=== PATIENT | female | born 1990 | race Hispanic/Latino ===

== ENCOUNTER 2018-07-28 07:16 | Observation (INO) | payer BC ==
[2018-07-28 07:24] VITALS: BMI 25.0
--- NOTE | 2018-07-28 07:47 | ED PDOC ---
HPI: Chest Pain Time Seen by Provider: 07/28/18 07:27 Chief Complaint (Nursing): Anxiety Chief Complaint (Provider): Chest Pain History Per: Patient History/Exam Limitations: no limitations Onset/Duration Of Symptoms: Hrs (x1) Current Symptoms Are (Timing): Still Present Context: Other (Cocaine use) Quality: "Pain" Additional Complaint(s): 27 year old female with no significant past medical history presents to the ED with chest pain for an hour. Patient states she used cocaine when symptoms developing. She feels anxious at present, but denies any shortness of breath. Patient admits that this isnt her first time using cocaine. PMD: none provided. Past Medical History Reviewed: Historical Data, Nursing Documentation, Vital Signs Vital Signs: Last Vital Signs Temp 98.7 F 07/28/18 07:24 Pulse 110 H 07/28/18 07:24 Resp 17 07/28/18 07:24 BP 131/76 07/28/18 07:24 Pulse Ox 96 07/28/18 07:24 - Medical History PMH: Depression - Surgical History Surgical History: No Surg Hx - Family History Family History: States: Unknown Family Hx - Social History Current smoker - smoking cessation education provided: No Ex-Smoker (has not smoked in the last 12 months): No Alcohol: Social Drugs: Cocaine - Home Medications Home Medications: Ambulatory Orders Medication Instructions Recorded No Known Home Med 07/28/18 - Allergies Allergies/Adverse Reactions: Allergies Allergy/AdvReac Type Severity Reaction Status Date / Time No Known Allergies Allergy Verified 09/20/16 04:54 Review of Systems ROS Statement: Except As Marked, All Systems Reviewed And Found Negative Cardiovascular: Positive for: Chest Pain Respiratory: Negative for: Shortness of Breath Physical Exam - Reviewed Nursing Documentation Reviewed: Yes Vital Signs Reviewed: Yes - Physical Exam Appears: Positive for: No Acute Distress Head Exam: Positive for: ATRAUMATIC, NORMOCEPHALIC Skin: Positive for: Normal Color, Warm, Dry Eye Exam: Positive for: Normal appearance, EOMI, PERRL Cardiovascular/Chest: Positive for: Tachycardia, Other (regular rhythm) Respiratory: Positive for: Normal Breath Sounds. Negative for: Respiratory Distress Neurologic/Psych: Positive for: Alert, Oriented (x3) - Laboratory Results Result Diagrams: 07/28/18 08:30 07/28/18 08:30 - ECG Interpretation Of ECG: ST @ 105, nonspecific ST and T wave abnormality. O2 Sat by Pulse Oximetry: 96 (RA) Pulse Ox Interpretation: Normal Medical Decision Making Medical Decision Making: Time: 742 Initial Impression: Cocaine, chest pain Initial Plan: --EKG --Alcohol serum --Drug screen --Troponin --Urine preg --Urine dip --CBC with differentials --PTT --Prothrombin time --CXR --Ativan 2 mg IVP --UA Accession No. : [id number] Patient Name / ID : ELAINE VALLEJO / [id number] Exam Date : 07/28/2018 08:18:29 ( Approved ) Study Comment : Sex / Age : F / 27Y Creator : Louis Hoover MD Dictator : Louis Hoover MD Test Manager : Industrial Pipefitter Journeyman : Louis Hoover MD Approver2 : Report Date : 07/28/2018 09:00:26 My Comment : Date of service: 07/28/2018 HISTORY: CP COMPARISON: No prior. FINDINGS: LUNGS: No active pulmonary disease. PLEURA: No significant pleural effusion identified, no pneumothorax apparent. CARDIOVASCULAR: No aortic atherosclerotic calcification present. Normal cardiac size. No pulmonary vascular congestion. OSSEOUS STRUCTURES: No significant abnormalities. VISUALIZED UPPER ABDOMEN: Normal. OTHER FINDINGS: None. IMPRESSION: No active disease. Scribe Attestation: Documented by Marzena Loo, acting as a scribe for Evy Saenz MD Provider Scribe Attestation: All medical record entries made by the Scribe were at my direction and personally dictated by me. I have reviewed the chart and agree that the record accurately reflects my personal performance of the history, physical exam, medical decision making, and the department course for this patient. I have also personally directed, reviewed, and agree with the discharge instructions and di sposition. Disposition - Clinical Impression Clinical Impression: Acute chest pain, Cocaine abuse - Patient ED Disposition Is Patient to be Admitted: Yes - Disposition Disposition Time: 09:28 Condition: STABLE Forms: [employer] (Iraqi) - Pt Status Changed To: Hospital Disposition Of: Observation - POA Present On Arrival: None
[2018-07-28 08:37] LABS: BASO # 0.1 K/uL (0.0-0.2); BASO % 1.2 % (0.0-2.0); EOS % 0.3 % (0.0-4.0); HEMOGLOBIN 13.3 g/dL (12.0-16.0); LYMPH # 1.2 K/uL (1.0-4.3); LYMPH % 23.3 % (20.0-40.0); MEAN CELL VOLUME 93.6 fl (81.0-99.0); MEAN CORPUSCULAR HGB CONC 34.3 g/dL (33.0-37.0); MEAN PLATELET VOLUME 8.3 fl (7.2-11.7); MONO # 0.2 K/uL (0.0-0.8); MONO % 4.4 % (0.0-10.0); NEUT # 3.5 K/uL (1.8-7.0); NEUT % 70.8 % (50.0-75.0); NRBC % 0.1 % (0.0-0.0); RBC 4.14 Mil/uL (3.80-5.20); RED CELL DISTRIBUTION WIDTH 12.6 % (11.5-14.5)
[2018-07-28 08:49] LABS: ALB/GLOB RATIO 1.4 (1.0-2.1); ALBUMIN 4.3 g/dL (3.5-5.0); ALT/SGPT 45 U/L (9-52); AST/SGOT 34 U/L (14-36); BLOOD UREA NITROGEN 8 mg/dl (7-17); CALCIUM 9.4 mg/dL (8.4-10.2); GFR NON-AFRICAN AMERICAN > 60
[2018-07-28 08:58] LABS: SQUAMOUS EPITHIAL 5 /hpf (0-5); URINE BACTERIA RARE (<OCC); URINE BILIRUBIN NEGATIVE (NEGATIVE); URINE BLOOD NEGATIVE (NEGATIVE); URINE CLARITY SLIGHTY-CLOUDY (Clear); URINE COLOR STRAW (YELLOW); URINE GLUCOSE (UA) NEG (NEGATIVE); URINE LEUKOCYTE ESTERASE TRACE Leu/uL (Negative); URINE PROTEIN NEGATIVE (NEGATIVE); URINE UROBILINOGEN 0.2-1.0 mg/dL (0.2-1.0)
[2018-07-28 08:59] LABS: PARTIAL THROMBOPLASTIN TIME 32.7 Seconds (25.6-37.1)
--- NOTE | 2018-07-28 09:03 | RAD ---
Date of service: 07/28/2018 HISTORY: CP COMPARISON: No prior. FINDINGS: LUNGS: No active pulmonary disease. PLEURA: No significant pleural effusion identified, no pneumothorax apparent. CARDIOVASCULAR: No aortic atherosclerotic calcification present. Normal cardiac size. No pulmonary vascular congestion. OSSEOUS STRUCTURES: No significant abnormalities. VISUALIZED UPPER ABDOMEN: Normal. OTHER FINDINGS: None. IMPRESSION: No active disease.
[2018-07-28 09:12] LABS: BARBITURATES, UR NEGATIVE (NEGATIVE); BENZODIAZEPINES, UR NEGATIVE (NEGATIVE); OPIATES, UR NEGATIVE (NEGATIVE); PHENCYCLIDINE, UR NEGATIVE (NEGATIVE)
[2018-07-28 09:13] LABS: INR 1.1; PROTHROMBIN TIME 12.9 Seconds (9.8-13.1)
[2018-07-28 12:45] VITALS: BP 99/62; PULSE 75; RESP 20; TEMP 98.2; O2SAT 99
--- NOTE | 2018-07-28 15:38 | CP.PCM.HP ---
History of Present Illness - History of Present Illness History of Present Illness: CC: Chest Pain History of Present Illness: A 27 year old female with history of Depression on Prozac, and On OCP presents to the ED with Left sided chest pain, acute onset, intermittent after patient used Cocaine which lasted an hour. She feels was anxious at presentation but calm now. Denies any shortness of breath, diaphoresis, lightheadedness or N/V. Patient admits that this isnt her first time using cocaine. +PULIDO earlier which got resolved after Tylenol use. Present on Admission - Present on Admission Any Indicators Present on Admission: No Review of Systems - Review of Systems All systems: reviewed and no additional remarkable complaints except Past Patient History - Past Medical History & Family History Past Medical History?: Yes Past Family History: Reviewed and not pertinent - Past Social History Smoking Status: Never Smoked Alcohol: Social Drugs: Cocaine - PSYCHIATRIC Hx Depression: Yes Meds Allergies/Adverse Reactions: Allergies Allergy/AdvReac Type Severity Reaction Status Date / Time No Known Allergies Allergy Verified 09/20/16 04:54 Physical Exam - Constitutional Appears: Well, No Acute Distress - Head Exam Head Exam: ATRAUMATIC, NORMAL INSPECTION, NORMOCEPHALIC - Eye Exam Eye Exam: EOMI, Normal appearance, PERRL Pupil Exam: NORMAL ACCOMODATION, PERRL - ENT Exam ENT Exam: Mucous Membranes Moist, Normal Exam - Neck Exam Neck exam: Positive for: Normal Inspection - Respiratory Exam Respiratory Exam: Clear to Auscultation Bilateral, NORMAL BREATHING PATTERN - Cardiovascular Exam Cardiovascular Exam: REGULAR RHYTHM, +S1, +S2 - GI/Abdominal Exam GI & Abdominal Exam: Normal Bowel Sounds, Soft. absent: Tenderness - Extremities Exam Extremities exam: Positive for: full ROM, normal capillary refill, normal inspection - Back Exam Back exam: NORMAL INSPECTION - Neurological Exam Neurological exam: Alert, CN II-XII Intact, Normal Gait, Oriented x3, Reflexes Normal - Psychiatric Exam Psychiatric exam: Normal Affect, Normal Mood - Skin Skin Exam: Dry, Intact, Normal Color, Warm Results - Vital Signs Recent Vital Signs: Last Vital Signs Temp 98.2 F 07/28/18 12:45 Pulse 75 07/28/18 12:45 Resp 20 07/28/18 12:45 BP 99/62 L 07/28/18 12:45 Pulse Ox 99 07/28/18 12:45 - Labs Result Diagrams: 07/28/18 08:30 07/28/18 08:30 Labs: Laboratory Results - last 24 hr 07/28/18 07/28/18 07/28/18 08:30 08:30 08:30 WBC 5.0 D RBC 4.14 Hgb 13.3 Hct 38.7 MCV 93.6 MCH 32.0 H MCHC 34.3 RDW 12.6 Plt Count 228 MPV 8.3 Neut % (Auto) 70.8 Lymph % (Auto) 23.3 [place] % (Auto) 4.4 Eos % (Auto) 0.3 Baso % (Auto) 1.2 Neut # (Auto) 3.5 Lymph # (Auto) 1.2 [place] # (Auto) 0.2 Eos # (Auto) 0.0 Baso # (Auto) 0.1 PT 12.9 INR 1.1 APTT 32.7 Sodium 142 Potassium 3.8 Chloride 107 Carbon Dioxide 23 Anion Gap 16 BUN 8 Creatinine 0.7 Est GFR ( Amer) > 60 Est GFR (Non-Af Amer) > 60 Random Glucose 98 Calcium 9.4 Total Bilirubin 0.3 AST 34 ALT 45 Alkaline Phosphatase 76 Troponin I < 0.0120 Total Protein 7.3 Albumin 4.3 Globulin 3.0 Albumin/Globulin Ratio 1.4 Urine Color Urine Clarity Urine pH Ur Specific [place] Urine Protein Urine Glucose (UA) Urine Ketones Urine Blood Urine Nitrate Urine Bilirubin Urine Urobilinogen Ur Leukocyte Esterase Urine RBC (Auto) Urine Microscopic WBC Ur Squamous Epith Cells Urine Bacteria Urine Opiates Screen Urine Methadone Screen Ur Barbiturates Screen Ur Phencyclidine Scrn Ur Amphetamines Screen U Benzodiazepines Scrn U Oth Cocaine Metabols U Cannabinoids Screen Alcohol, Quantitative 86 H 07/28/18 07/28/18 08:40 08:40 WBC RBC Hgb Hct MCV MCH MCHC RDW Plt Count MPV Neut % (Auto) Lymph % (Auto) [place] % (Auto) Eos % (Auto) Baso % (Auto) Neut # (Auto) Lymph # (Auto) [place] # (Auto) Eos # (Auto) Baso # (Auto) PT INR APTT Sodium Potassium Chloride Carbon Dioxide Anion Gap BUN Creatinine Est GFR ( Amer) Est GFR (Non-Af Amer) Random Glucose Calcium Total Bilirubin AST ALT Alkaline Phosphatase Troponin I Total Protein Albumin Globulin Albumin/Globulin Ratio Urine Color Straw Urine Clarity Slighty-cloudy Urine pH 8.0 Ur Specific [place] 1.006 Urine Protein Negative Urine Glucose (UA) Neg Urine Ketones Negative Urine Blood Negative Urine Nitrate Negative Urine Bilirubin Negative Urine Urobilinogen 0.2-1.0 Ur Leukocyte Esterase Trace Urine RBC (Auto) < 1 Urine Microscopic WBC 11 H Ur Squamous Epith Cells 5 Urine Bacteria Rare Urine Opiates Screen Negative Urine Methadone Screen Negative Ur Barbiturates Screen Negative Ur Phencyclidine Scrn Negative Ur Amphetamines Screen Negative U Benzodiazepines Scrn Negative U Oth Cocaine Metabols Positive H U Cannabinoids Screen Negative Alcohol, Quantitative - EKG Data EKG Interpreted by: Myself - Impressions Impression: Non-specific ST-T changes. - Imaging and Cardiology Chest x-ray Status: Report reviewed by me Additional comment: No Active Disease Assessment & Plan (1) Acute chest pain Assessment and Plan: R/O ACS Status: Acute Priority: High Comment: Serial trop and EKG. Nitro S/L PRN. ASA. O2 Via NC. Continuous Telemonitoring. Cardiology Consult (2) Cocaine use disorder Assessment and Plan: Counselled Status: Acute Priority: Medium (3) Depression Assessment and Plan: Continue Prozac Status: Chronic Priority: Low (4) Oral contraceptive use Assessment and Plan: Hold for now for Possible Hypercoagulable state Status: Chronic Priority: Low
--- NOTE | 2018-07-28 15:51 | CP.PCM.DIS ---
Provider - Provider Date of Admission: 07/28/18 09:30 Attending physician: Jay Jay Collier MD Consults: 07/28/18 12:10 Cardiology Consult Routine Comment: Consulting Provider: Cesar Browning Consulting Physician: Cesar Browning Reason for Consult: chest pain Time Spent in preparation of Discharge (in minutes): 15 Diagnosis - Discharge Diagnosis (1) Acute chest pain Status: Acute Priority: High (2) Cocaine use disorder Status: Acute Priority: Medium (3) Depression Status: Chronic Priority: Low (4) Oral contraceptive use Status: Chronic Priority: Low Hospital Course - Lab Results Lab Results: Most Recent Lab Values WBC 5.0 K/uL (4.8-10.8) D 07/28/18 08:30 RBC 4.14 Mil/uL (3.80-5.20) 07/28/18 08:30 Hgb 13.3 g/dL (12.0-16.0) 07/28/18 08:30 Hct 38.7 % (34.0-47.0) 07/28/18 08:30 MCV 93.6 fl (81.0-99.0) 07/28/18 08:30 MCH 32.0 pg (27.0-31.0) H 07/28/18 08:30 MCHC 34.3 g/dL (33.0-37.0) 07/28/18 08:30 RDW 12.6 % (11.5-14.5) 07/28/18 08:30 Plt Count 228 K/uL (130-400) 07/28/18 08:30 MPV 8.3 fl (7.2-11.7) 07/28/18 08:30 Neut % (Auto) 70.8 % (50.0-75.0) 07/28/18 08:30 Lymph % (Auto) 23.3 % (20.0-40.0) 07/28/18 08:30 [place] % (Auto) 4.4 % (0.0-10.0) 07/28/18 08:30 Eos % (Auto) 0.3 % (0.0-4.0) 07/28/18 08:30 Baso % (Auto) 1.2 % (0.0-2.0) 07/28/18 08:30 Neut # (Auto) 3.5 K/uL (1.8-7.0) 07/28/18 08:30 Lymph # (Auto) 1.2 K/uL (1.0-4.3) 07/28/18 08:30 [place] # (Auto) 0.2 K/uL (0.0-0.8) 07/28/18 08:30 Eos # (Auto) 0.0 K/uL (0.0-0.7) 07/28/18 08:30 Baso # (Auto) 0.1 K/uL (0.0-0.2) 07/28/18 08:30 PT 12.9 Seconds (9.8-13.1) 07/28/18 08:30 INR 1.1 07/28/18 08:30 APTT 32.7 Seconds (25.6-37.1) 07/28/18 08:30 Sodium 142 mmol/l (132-148) 07/28/18 08:30 Potassium 3.8 MMOL/L (3.6-5.0) 07/28/18 08:30 Chloride 107 mmol/L (98-107) 07/28/18 08:30 Carbon Dioxide 23 mmol/L (22-30) 07/28/18 08:30 Anion Gap 16 (10-20) 07/28/18 08:30 BUN 8 mg/dl (7-17) 07/28/18 08:30 Creatinine 0.7 mg/dl (0.7-1.2) 07/28/18 08:30 Est GFR ( Amer) > 60 07/28/18 08:30 Est GFR (Non-Af Amer) > 60 07/28/18 08:30 Random Glucose 98 mg/dL (65-105) 07/28/18 08:30 Calcium 9.4 mg/dL (8.4-10.2) 07/28/18 08:30 Total Bilirubin 0.3 mg/dl (0.2-1.3) 07/28/18 08:30 AST 34 U/L (14-36) 07/28/18 08:30 ALT 45 U/L (9-52) 07/28/18 08:30 Alkaline Phosphatase 76 U/L (38-126) 07/28/18 08:30 Troponin I < 0.0120 ng/mL (0.00-0.120) 07/28/18 08:30 Total Protein 7.3 G/DL (6.3-8.2) 07/28/18 08:30 Albumin 4.3 g/dL (3.5-5.0) 12 08:30 Globulin 3.0 gm/dL (2.2-3.9) 07/28/18 08:30 Albumin/Globulin Ratio 1.4 (1.0-2.1) 07/28/18 08:30 Urine Color Straw (YELLOW) 07/28/18 08:40 Urine Clarity Slighty-cloudy (Clear) 07/28/18 08:40 Urine pH 8.0 (5.0-8.0) 07/28/18 08:40 Ur Specific [place] 1.006 (1.003-1.030) 07/28/18 08:40 Urine Protein Negative mg/dL (NEGATIVE) 07/28/18 08:40 Urine Glucose (UA) Neg mg/dL (NEGATIVE) 07/28/18 08:40 Urine Ketones Negative mg/dL (NEGATIVE) 07/28/18 08:40 Urine Blood Negative (NEGATIVE) 07/28/18 08:40 Urine Nitrate Negative (NEGATIVE) 07/28/18 08:40 Urine Bilirubin Negative (NEGATIVE) 07/28/18 08:40 Urine Urobilinogen 0.2-1.0 mg/dL (0.2-1.0) 12 08:40 Ur Leukocyte Esterase Trace [place]/uL (Negative) 07/28/18 08:40 Urine RBC (Auto) < 1 /hpf (0-3) 07/28/18 08:40 Urine Microscopic WBC 11 /hpf (0-5) H 07/28/18 08:40 Ur Squamous Epith Cells 5 /hpf (0-5) 07/28/18 08:40 Urine Bacteria Rare (<OCC) 07/28/18 08:40 Urine Opiates Screen Negative (NEGATIVE) 07/28/18 08:40 Urine Methadone Screen Negative (NEGATIVE) 07/28/18 08:40 Ur Barbiturates Screen Negative (NEGATIVE) 07/28/18 08:40 Ur Phencyclidine Scrn Negative (NEGATIVE) 07/28/18 08:40 Ur Amphetamines Screen Negative (NEGATIVE) 07/28/18 08:40 U Benzodiazepines Scrn Negative (NEGATIVE) 07/28/18 08:40 U Oth Cocaine Metabols Positive (NEGATIVE) H 07/28/18 08:40 U Cannabinoids Screen Negative (NEGATIVE) 07/28/18 08:40 Alcohol, Quantitative 86 mg/dl (0-10) H 07/28/18 08:30 Discharge Exam - Head Exam Head Exam: ATRAUMATIC, NORMAL INSPECTION, NORMOCEPHALIC Discharge Plan - Follow Up Plan Condition: STABLE Disposition: AGAINST MEDICAL ADVICE
--- NOTE | 2018-07-28 18:26 | CARD ---
APPROVED REPORT Date of service: 07/28/2018 EKG Measurement Heart [id number] <Conclusion> Sinus tachycardia Nonspecific ST and T wave abnormality Abnormal ECG
--- NOTE | 2018-07-28 23:31 | CON ---
DATE: 07/28/2018 CARDIOLOGY CONSULTATION REASON FOR CONSULTATION: Chest pain. HISTORY OF PRESENT ILLNESS: The patient is a 27-year-old female, who has no known prior cardiac history. She abuses cocaine and presents with a chest pain a few hours after cocaine abuse. The patient denies any prior chest pain related to cocaine abuse in the past and describes her chest pain as heaviness. The patient denies any associated diaphoresis, dizziness, or syncope and at this time, she is chest pain free. SOCIAL HISTORY: The patient is a nonsmoker. She works as a teacher . MENSTRUAL HISTORY: The patient has quinn menses now and never got or had children. The patient is using control pills for the past one year. HOME MEDICATIONS: control pills for the past one year, also had Prozac 30 mg once a day. CURRENT MEDICATIONS: Aspirin 325 mg once a day and Prozac 30 mg once a day. PHYSICAL EXAMINATION: GENERAL: The patient is a young middle-aged female, who does not appear to be in any distress. VITAL SIGNS: Blood pressure 99/62, heart rate 75, temperature 98.2, and respirations 20. HEENT: Normocephalic. NECK: No JVD. CHEST: Clear. HEART: S1 and S2 regular. ABDOMEN: Soft. EXTREMITIES: No edema. No calf tenderness. LABORATORY DATA: PT, PTT, and INR are within normal limits. SMA-7: Sodium 142, potassium 3.8, chloride 107, CO2 of 23, glucose 98, BUN 8, and creatinine 0.7. The first set of troponin is negative. CBC: WBC 5, hemoglobin 15.3, hematocrit 38.7, and platelet count 128,000. EKG revealed sinus rhythm with nonspecific inferior ST-T wave changes, ischemia cannot be completely excluded. Chest x-ray was unremarkable. Urine drug screen is positive for cocaine, alcohol level is 86. ASSESSMENT: 1. Chest pain, rule out myocardial infarction. 2. Cocaine abuse. 3. ETOH abuse. 4. Abnormal EKG with questionable ischemic inferior ST-T wave changes. RECOMMENDATIONS: Continue aspirin 325 mg once a day and Nitrostat 0.4 mg sublingually p.r.n. Obtain one more set of troponin, obtain serial D-dimer, and schedule the patient for an echocardiogram. Psychiatry evaluation is also recommended. Cesar Browning MD JILLIAN
== END 2018-07-28 15:30 | disposition left against medical advice (07) ==
LOC: H.ER 07:16 → H.ERHOLD 09:30 → H.TEL 11:52
PROVIDERS: ADMIT Internal Medicine; ATTEND Internal Medicine
DX: R07.9 Chest pain, unspecified (principal); F10.10 Alcohol abuse, uncomplicated; F14.10 Cocaine abuse, uncomplicated; F32.9 Major depressive disorder, single episode, unspecified; F41.9 Anxiety disorder, unspecified; R07.89 Other chest pain; Z79.899 Other long term (current) drug therapy; R94.31 Abnormal electrocardiogram [ECG] [EKG]
CPT/HCPCS: 71045; 80053; 81003; 81025; 84484; 85025; 85610; 85730; 93005; 96374; 99285; G0378; G0480; J2060